=== PATIENT | male | born 1950 | race African-American/Black ===

== ENCOUNTER 2020-01-10 06:21 | Emergency (ER) | payer MEDICARE ==
[2020-01-10] MEDS ORDERED: EPINEPHRINE INJ 1 MG/10 ML DISP.SYRIN ONE (07:00)
--- NOTE | 2020-01-10 08:31 | ER Document Report ---
ED Resuscitation - General Chief Complaint: Cardiac Arrest Stated Complaint: CARDIAC ARREST Time Seen by Provider: 01/10/20 06:21 Mode of Arrival: Medic Cannot obtain history due to: Other - CPR in progress Notes: 69-year-old man who was brought to the emergency department with CPR in progress. Apparently EMS was called to a local group home for what appeared to be a seizure-like episode. Patient noted to be unresponsive and in ventricular fibrillation. Patient was defibrillated and given amiodarone 300 mg bolus, CPR in progress he received 7 doses of epinephrine during the resuscitative effort. There was a brief period of spontaneous return of pulse, however, upon arrival to the emergency department the patient was pulseless and CPR was in progress. CPR was continued patient received 3 doses of epinephrine,the LMA was removed and a orotracheal intubation performed, after 3 rounds of epinephrine and continued resuscitative efforts, a bedside ultrasound was performed patient has complete cardiac standstill. Resuscitative efforts were discontinued at 06:32. Past Medical History - General Information source: POA - Power of [employer] - Social History Smoking Status: Unknown if Ever Smoked Family History: Reviewed & Not Pertinent Review of Systems - Review of Systems Notes: Patient is unresponsive and CPR in progress. -: Yes ROS unobtainable due to patient's medical condition - unresponsive CPRin progress Physical Exam - Notes Notes: PHYSICAL EXAMINATION: Physical Exam: General: Unresponsive HEENT: Pupils are fixed and dilated, Neck: supple Lungs: Bagged valve ventilation CVS: No cardiac activity, CPR in progress Abdomen: Soft Neuro: Unresponsive Skin: mottled Course - Re-evaluation Re-evalutation: 01/10/20 09:06 Apparently CSI will come to investigate, there is a implantable device noted in the left upper chest wall? Defibrillator? Pacemaker- defibrillator unclear. We have little or no history other than a history of diabetes mellitus. 01/10/20 09:17 Information obtained by charge nurse from the [facility] [place]. He has a history of COPD, CHF, hypertension, and a implantable defibrillator device. Apparently this morning when the nurse called to have him come for a blood sugar check patient was found sold with urine and stool he also was found to be poorly responsive and they were unable to obtain a blood pressure. EMS was called and the patient who is poorly responsive found to be in ventricular fibrillation. Patient was defibrillated and the rest of the story is contained in the HPI. Discharge - Discharge Clinical Impression: Cardiopulmonary arrest Disposition:
== END 2020-01-10 09:00 | disposition expired ==
LOC: ER 06:21
DX: I46.9 Cardiac arrest, cause unspecified (principal); E11.9 Type 2 diabetes mellitus without complications; I50.9 Heart failure, unspecified; I11.0 Hypertensive heart disease with heart failure; Z95.810 Presence of automatic (implantable) cardiac defibrillator
CPT/HCPCS: 99285; 92950; 31500; J0171